=== PATIENT | female | born 1990 ===

== ENCOUNTER → 2017-06-09 15:15 | Outpatient (CLI) | payer MEDICAID ==
[~2017-06-09 15:15] MED LIST: CLARITIN-D1 TAB.SR1 PO; IBUPROFEN600 MG PO; PRENATAL COMPLE1 TAB PO
[2017-06-28 22:59] VITALS: BMI 25.8
== END | disposition home or self-care (01) ==
LOC: D.LDO 15:15
DX: O36.8130 Decreased fetal movements, third trimester, not applicable or unspecified (principal); Z3A.37 37 weeks gestation of pregnancy

== ENCOUNTER 2017-06-28 22:11 | Inpatient (IN) | payer MEDICAID ==
[~2017-06-28] VITALS: Ht 165.1 cm; Wt 70.3 kg
[2017-06-28] MEDS ORDERED: PRENATAL COMPLE1 TAB PO (22:22)
[2017-06-28] MEDS ORDERED: CLARITIN-D1 TAB.SR1 PO (22:23)
[2017-06-28 22:59] VITALS: BP 107/76; Ht 165.1 cm; Wt 70.3 kg
[2017-06-28 23:06] LABS: HEMATOCRIT 37.5 % (36.0-48.0); HEMOGLOBIN 13.1 g/dL (12-16); MCH 33.6 pg (26.0-34.0); MCHC 34.9 g/dL (31.0-37.0); MCV 96.2 fL (80.0-100.0); MEAN PLATELET VOLUME 10.9 fL (7.4-10.4); RBC 3.9 10x6/uL (4.00-5.40); RDW 12.5 % (11.5-14.5); WBC 16.4 10x3/uL (4.8-10.8)
[2017-06-28 23:14] LABS: APPEARANCE CLEAR (CLEAR); BILIRUBIN NEGATIVE (NEGATIVE); COLOR YELLOW (YELLOW); GLUCOSE 250 mg/dL (NEGATIVE); KETONE NEGATIVE (NEGATIVE); NITRITE NEGATIVE (NEGATIVE); PROTEIN NEGATIVE (NEGATIVE); UROBILINOGEN NORMAL (NORMAL)
[2017-06-29 07:30] VITALS: BP 96/55
[2017-06-29 12:52] LABS: BASOPHILS 0.1 % (0-2); EOSINOPHILS 0.3 % (0-7); HEMATOCRIT 34.3 % (36.0-48.0); HEMOGLOBIN 11.9 g/dL (12-16); IMMATURE GRANULOCYTES 0.8 % (0-5); MCH 33.1 pg (26.0-34.0); MCHC 34.7 g/dL (31.0-37.0); MCV 95.5 fL (80.0-100.0); MEAN PLATELET VOLUME 10.8 fL (7.4-10.4); NEUTROPHILS 79.8 % (40-80); PLATELET COUNT 197 10x3/uL (130-400); RBC 3.59 10x6/uL (4.00-5.40); RDW 12.3 % (11.5-14.5); WBC 19.5 10x3/uL (4.8-10.8)
[2017-06-29 14:51] VITALS: BP 105/69
[2017-06-29 19:17] VITALS: BP 115/65
[2017-06-30 07:25] VITALS: BP 102/68
[2017-06-30 08:30] LABS: BASOPHILS 0.3 % (0-2); EOSINOPHILS 1.2 % (0-7); HEMATOCRIT 34.9 % (36.0-48.0); HEMOGLOBIN 12.2 g/dL (12-16); IMMATURE GRANULOCYTES 1.2 % (0-5); LYMPHOCYTES 24.9 % (15-50); MCH 33.9 pg (26.0-34.0); MCV 96.9 fL (80.0-100.0); MEAN PLATELET VOLUME 10.3 fL (7.4-10.4); MONOCYTES 8.2 % (2-11); NEUTROPHILS 64.2 % (40-80); PLATELET COUNT 194 10x3/uL (130-400); RDW 12.5 % (11.5-14.5)
[2017-06-30 08:33] LABS: WBC 13.7 10x3/uL (4.8-10.8)
[2017-06-30] MEDS ORDERED: IBUPROFEN600 MG PO (13:52)
[2017-07-02 06:12] LABS: RAPID PLASMA REAGIN Non Reactive (Non Reactive)
== END 2017-06-30 14:25 | disposition home or self-care (01) | DRG 775 ==
LOC: D.LD 22:11 → D.LDO 22:11 → D.LD 22:39
PROVIDERS: Obstetrics & Gynecology
PROC: 10D07Z6 Extraction of Products of Conception, Vacuum, Via Natural or Artificial Opening (ICD-10-PCS; principal; 2017-06-29)
PROC: 0KQM0ZZ Repair Perineum Muscle, Open Approach (ICD-10-PCS; 2017-06-29)
DX: O76 Abnormality in fetal heart rate and rhythm complicating labor and delivery (principal); O77.0 Labor and delivery complicated by meconium in amniotic fluid; O69.81X0 Labor and delivery complicated by cord around neck, without compression, not applicable or unspecified; N85.6 Intrauterine synechiae; Z3A.39 39 weeks gestation of pregnancy; Z37.0 Single live birth